=== PATIENT | female | born 1935 | race African-American/Black ===

== ENCOUNTER 2024-10-10 10:51 | Inpatient (IN) | payer OTHER, MEDICAID ==
[~2024-10-10] VITALS: Ht 160 cm; Wt 64.5 kg
[2024-10-10 11:10] LABS: BASOPHILS % (AUTO) 0.4 % (0.0-2.0); HEMATOCRIT 30.2 % (36-46); HEMOGLOBIN 9.9 g/dL (12.0-16.0); LYMPHOCYTES # (AUTO) 2.3 K/uL (1.0-4.8); LYMPHOCYTES % (AUTO) 18.5 % (22.0-44.0); MEAN CORPUSCULAR HEMOGLOBIN 24.2 pg (26.0-34.0); MEAN CORPUSCULAR HGB CONC 32.6 G/dL (31.0-37.0); MEAN CORPUSCULAR VOLUME 74 fL (80-100); MONOCYTES # (AUTO) 1.1 K/uL (0.1-1.0); MONOCYTES % (AUTO) 8.8 % (2.0-9.0); NEUTROPHILS # (AUTO) 8.4 K/uL (1.8-7.7); NEUTROPHILS % (AUTO) 68.3 % (40.0-70.0); PLATELET COUNT (AUTO) 226 K/uL (150-450); RED BLOOD CELL COUNT(AUTO) 4.08 MIL/uL (4.00-5.20); RED CELL DISTRIBUTION WIDTH 17.5 % (11.5-14.5); WHITE BLOOD COUNT (AUTO) 12.3 K/uL (4.5-11.0)
[2024-10-10] MEDS ORDERED: ONDANSETRON HCL 4 MG/2 ML VIAL IVP PRN (11:15)
[2024-10-10] MEDS ORDERED: BISACODYL 10 MG RECTAL RECTAL SUPPOSITORY PR PRN (11:15)
[2024-10-10 11:22] LABS: CALCIUM, TOTAL 9.1 mg/dL (8.8-10.5); CREATININE 1.74 mg/dL (0.60-1.30); POTASSIUM 4.6 mmol/L (3.5-5.1)
[2024-10-10 11:24] LABS: PROTHROMBIN TIME 11.4 SEC (9.4-11.6)
[2024-10-10 11:25] LABS: ALBUMIN 2.7 g/dL (3.4-5.0); BILIRUBIN,TOTAL 0.5 mg/dL (0.1-1.0); TOTAL PROTEIN, SERUM 7.5 g/dL (6.4-8.2)
[2024-10-10 11:28] LABS: TROPONIN I-HIGH SENSITIVITY 9 ng/L (<51)
[2024-10-10 11:36] LABS: RBC MORPHOLOGY COMMENT ABNORMAL RBC MORPH
[2024-10-10] MEDS: SODIUM CHLORIDE 0.9% 1,000 ML IV ONE (11:59)
[2024-10-10] MEDS: METOPROLOL TARTRATE 5 MG/5 ML VIAL IVP ONE (12:06)
[2024-10-10] MEDS: CLOPIDOGREL BISULFATE 75 MG TABLET PO ONE (12:36)
[2024-10-10] MEDS: ASPIRIN 81 MG CHEWABLE TABLET PO ONE (12:37)
[2024-10-10] MEDS ORDERED: AMLO-257 PO (12:58)
[2024-10-10] MEDS ORDERED: ATOR40TA28 PO (12:58)
[2024-10-10 14:20] LABS: APPEARANCE,URINE CLEAR (CLEAR); BILIRUBIN,URINE NEGATIVE (NEGATIVE); COLOR,URINE COLORLESS (YELLOW); GLUCOSE, URINE (UA) NEGATIVE (NEGATIVE); KETONES,URINE NEGATIVE (NEGATIVE); LEUKOCYTE ESTERASE ,URINE NEGATIVE (NEGATIVE); NITRATE,URINE NEGATIVE (NEGATIVE); OCCULT BLOOD,URINE NEGATIVE (NEGATIVE); PH,URINE 7.5 (5.0-8.0); PROTEIN,URINE TRACE mg/dL (NEGATIVE); SPECIFIC GRAVITIY, URINE 1.033 (1.003-1.030); UROBILINOGEN,URINE <=1.0 mg/dL (<=1.0)
[2024-10-10] MEDS: HydrALAZINE HCL 20 MG/ML VIAL IVP PRN (14:32)
[2024-10-10] MEDS: HEPARIN SODIUM,PORCINE 5,000 UNITS/ML VIAL SQ SCH (15:19)
[2024-10-10 17:20] LABS: TROPONIN I-HIGH SENSITIVITY 7 ng/L (<51)
[2024-10-10] MEDS: ASPIRIN 81 MG CHEWABLE TABLET PO SCH (18:02)
[2024-10-10] MEDS: CLOPIDOGREL BISULFATE 75 MG TABLET PO SCH (18:02)
[2024-10-10] MEDS: LOSARTAN POTASSIUM 50 MG TABLET PO SCH (18:04)
[2024-10-10] MEDS: ATORVASTATIN CALCIUM 40 MG TABLET PO SCH (20:53)
[2024-10-10] MEDS: AmLODIPine BESYLATE 10 MG TABLET PO SCH (20:53)
[2024-10-10 22:10] VITALS: BP 155/82; PULSE 82; RESP 19; TEMP 97.8; O2SAT 95
[2024-10-11] VITALS (8 sets, daily range): BP systolic 129–165; BP diastolic 70–79; PULSE 81–97; RESP 16–19; TEMP 97.5–98.1; O2SAT 94–95
[2024-10-11 01:30] LABS: TROPONIN I-HIGH SENSITIVITY 7 ng/L (<51)
[2024-10-11] MEDS: PANTOPRAZOLE SODIUM 40 MG/VIAL IVP SCH (08:52)
[2024-10-11] MEDS: SODIUM CHLORIDE 0.9% 1,000 ML IV ONE (13:55)
[2024-10-12 00:01] VITALS: BP 128/60; PULSE 94; RESP 18; TEMP 97.1; O2SAT 94
[2024-10-12 04:42] VITALS: BP 146/69; PULSE 86; RESP 18; TEMP 97.6; O2SAT 95
[2024-10-12 06:55] LABS: BASOPHILS % (AUTO) 0.3 % (0.0-2.0); EOSINOPHILS % (AUTO) 2.6 % (1.0-6.0); HEMATOCRIT 28.9 % (36-46); HEMOGLOBIN 9.7 g/dL (12.0-16.0); LYMPHOCYTES # (AUTO) 2.1 K/uL (1.0-4.8); LYMPHOCYTES % (AUTO) 16.8 % (22.0-44.0); MEAN CORPUSCULAR HEMOGLOBIN 24.7 pg (26.0-34.0); MEAN CORPUSCULAR HGB CONC 33.4 G/dL (31.0-37.0); MEAN CORPUSCULAR VOLUME 74 fL (80-100); MONOCYTES # (AUTO) 1.2 K/uL (0.1-1.0); MONOCYTES % (AUTO) 9.8 % (2.0-9.0); NEUTROPHILS # (AUTO) 8.9 K/uL (1.8-7.7); NEUTROPHILS % (AUTO) 70.5 % (40.0-70.0); PLATELET COUNT (AUTO) 216 K/uL (150-450); RED BLOOD CELL COUNT(AUTO) 3.91 MIL/uL (4.00-5.20); RED CELL DISTRIBUTION WIDTH 17.5 % (11.5-14.5); WHITE BLOOD COUNT (AUTO) 12.6 K/uL (4.5-11.0)
[2024-10-12 07:07] LABS: CREATININE 1.84 mg/dL (0.60-1.30); POTASSIUM 4.4 mmol/L (3.5-5.1)
[2024-10-12 07:20] LABS: CALCIUM, TOTAL 8.6 mg/dL (8.8-10.5)
[2024-10-12 08:24] VITALS: BP 146/77; PULSE 101; RESP 18; TEMP 97.9; O2SAT 96
[2024-10-12] MEDS: AMOX TR/POT CLAV 250 MG/125 MG TABLET PO SCH (11:28)
[2024-10-12] MEDS: CARVEDILOL 6.25 MG TABLET PO SCH (11:28)
[2024-10-12 11:29] VITALS: BP 149/74; PULSE 96; RESP 19; TEMP 98; O2SAT 96
[2024-10-12 15:42] VITALS: BP 142/72; PULSE 84; RESP 18; TEMP 98.1; O2SAT 97
[2024-10-12 19:50] VITALS: BP 159/74; PULSE 89; RESP 18; TEMP 98.4; O2SAT 95
[2024-10-12] MEDS: ACETAMINOPHEN 325 MG TABLET PO PRN (21:03)
[2024-10-13 00:40] VITALS: BP 115/62; PULSE 87; RESP 16; TEMP 97.9; O2SAT 93
[2024-10-13 04:40] VITALS: BP 134/68; PULSE 82; RESP 20; TEMP 97.7; O2SAT 94
[2024-10-13 07:52] VITALS: BP 141/62; PULSE 84; RESP 17; TEMP 97.3; O2SAT 95
[2024-10-13 11:10] LABS: BASOPHILS % (AUTO) 0.4 % (0.0-2.0); EOSINOPHILS % (AUTO) 3.7 % (1.0-6.0); HEMATOCRIT 28.9 % (36-46); HEMOGLOBIN 9.3 g/dL (12.0-16.0); LYMPHOCYTES # (AUTO) 1.4 K/uL (1.0-4.8); LYMPHOCYTES % (AUTO) 11.9 % (22.0-44.0); MEAN CORPUSCULAR HEMOGLOBIN 23.7 pg (26.0-34.0); MEAN CORPUSCULAR VOLUME 74 fL (80-100); MONOCYTES % (AUTO) 8.9 % (2.0-9.0); NEUTROPHILS # (AUTO) 8.7 K/uL (1.8-7.7); NEUTROPHILS % (AUTO) 75.1 % (40.0-70.0); PLATELET COUNT (AUTO) 203 K/uL (150-450); RED CELL DISTRIBUTION WIDTH 17.2 % (11.5-14.5); WHITE BLOOD COUNT (AUTO) 11.5 K/uL (4.5-11.0)
[2024-10-13 11:12] LABS: RBC MORPHOLOGY COMMENT ABNORMAL RBC MORPH
[2024-10-13 11:41] LABS: CALCIUM, TOTAL 8.7 mg/dL (8.8-10.5); CREATININE 2.26 mg/dL (0.60-1.30); POTASSIUM 4.2 mmol/L (3.5-5.1)
[2024-10-13] MEDS ORDERED: CARV6 PO (17:43)
[2024-10-13] MEDS ORDERED: LOSA-382 PO (17:43)
[2024-10-13] MEDS ORDERED: CIPOTIC AU (17:47)
[2024-10-13 19:00] VITALS: BP 134/69; PULSE 86; RESP 18; TEMP 97.6; O2SAT 97
[2024-10-14 05:46] LABS: GLUCOMETER DEV NAME(LOC) 5S.1D; GLUCOSE,POINT OF CARE 91 MG/DL (70-110)
== END 2024-10-13 19:00 | disposition home or self-care (01) | DRG 69 ==
LOC: EMS 10:51 → EDH 11:11 → 5S 21:28
PROVIDERS: ADMIT Internal Medicine; ATTEND Internal Medicine
DX: G45.9 Transient cerebral ischemic attack, unspecified (principal); R47.01 Aphasia; I12.9 Hypertensive chronic kidney disease with stage 1 through stage 4 chronic kidney disease, or unspecified chronic kidney disease; R29.810 Facial weakness; N18.30 Chronic kidney disease, stage 3 unspecified; H66.92 Otitis media, unspecified, left ear; E78.00 Pure hypercholesterolemia, unspecified; Z79.899 Other long term (current) drug therapy
CPT/HCPCS: 70496; 70498; 70551; 71045; 80048; 80053; 80061; 81003; 82948; 82962; 84484; 85025; 85610; 85730; 86850; 86900; 86901; 92526; 92610; 93005; 93306; 97163; 97166; 97530; 97535; 99285; J0360; J1644; J2470; J3490; 36415-L1; 36415-TC; 70450; 70450-TC